=== PATIENT | female | born 1960 | race Caucasian/White ===

== ENCOUNTER 2017-01-31 17:09 | Emergency (ER) | payer MEDICAID ==
[2017-01-31] MEDS ORDERED: Lidocaine 2% 10 ML Amp INJECT ONE (18:06)
[2017-01-31 19:17] VITALS: BP 136/71
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
--- NOTE | 2017-02-04 14:29 | CR ---
INDICATION: Trauma. RIGHT FOREARM, 2 VIEWS: FINDINGS: This exam is given to me on 02/04/2017 to interpret. There is an earlier x-ray that is from 09/01/2010. Since the study from 2010, the patient underwent internal fixation of a comminuted fracture related to the distal radius. That fracture is healed. There is a non-united fracture fragment of the base of the styloid process of the ulna. There is some lucency that is identified within the radial head with some deformity in the radial head. There is an associated joint effusion. I do think that the patient probably does have an acute fracture associated with the radial head and radial neck. I otherwise do not see any additional fractures. IMPRESSION: 1. Acutely, there is a fracture associated with the radial head and neck of the radius. There is an associated joint effusion at the elbow. 2. Old, previously internally fixed fracture of the distal radius. [facility]
--- NOTE | 2017-02-04 14:33 | CR ---
INDICATION: Trauma. Navicular tenderness. RIGHT WRIST, 3 VIEWS: FINDINGS: There are three views of the right wrist that are obtained. In addition, there is an additional navicular view that was obtained. The patient had a previous comminuted fracture related to the distal radius, which has been previously internally fixed. There is an old non-united fracture associated with styloid process of the ulna. As visualized, I do not see an acute fracture related to the navicular bone or related to the remainder of the right wrist. If the patient should continue to have symptoms related to the right wrist or navicular region, I recommend either follow-up radiographs or if necessary, an MRI scan for further evaluation. RAY
== END 2017-01-31 19:15 | disposition home or self-care (01) ==
LOC: FB.ED 17:09
DX: S06.0X0A Concussion without loss of consciousness, initial encounter (principal); S52.124A Nondisplaced fracture of head of right radius, initial encounter for closed fracture; Z88.1 Allergy status to other antibiotic agents; Z88.5 Allergy status to narcotic agent; W22.8XXA Striking against or struck by other objects, initial encounter
CPT/HCPCS: 29125; 70450; 70486; 73090-RT; 73110-RT; 99283

== ENCOUNTER 2019-06-05 14:02 | Emergency (ER) | payer MEDICAID ==
--- NOTE | 2019-06-05 14:28 | EDM.PDOC ---
ED HPI GENERAL MEDICAL PROBLEM - General Chief Complaint: ENT Problem Stated Complaint: SOMETHING IN LEFT EYE Time Seen by Provider: 06/05/19 14:27 Source of Information: Reports: Patient History Limitations: Reports: No Limitations - History of Present Illness INITIAL COMMENTS - FREE TEXT/NARRATIVE: 58-year-old female who reports she woke at 7:45 AM with a feeling of irritation and discomfort in her left eye. He also had increased tearing in her left eye. She attempted to flush the eye and there was no relief of her symptoms. She does have the feeling of a foreign body in her left eye and seems to be moving around but seems to be under her upper lid. No nausea or vomiting. No nasal congestion or sore throat. No cough or difficulty breathing. She rates the discomfort as an 8/10. It isn't irritating type of pain. No known injury. No known exposure. She reports she was completely normal when she went to bed last night with no symptoms. There are no other associated signs or symptoms. There are no other modifying factors. Onset: Today (7:45 AM) Duration: Constant Location: Reports: Other (Left eye) Quality: Reports: Other (Irritating) Severity: Moderate Improves with: Reports: None Worsens with: Reports: Other (Blinking. Light.) Context: Reports: Other (As above) Associated Symptoms: Reports: No Other Symptoms Treatments G[employer] ATTENDANT: Reports: Other (see below) Left Eye Pain Score (Numeric/FACES): 4 - Related Data Allergies Allergy/AdvReac Type Severity Reaction Status Date / Time codeine Allergy Nausea Verified 06/05/19 14:11 Penicillins Allergy Respiratory Verified 06/05/19 14:11 Distress Home Meds: Home Meds Erythromycin Base [Erythromycin 0.5% Ophth Oint] 1 applic EYELF QID 5 Days #1 tube 06/05/19 [Rx] Mirtazapine 7.5 mg PO BEDTIME PRN 06/05/19 [History] Sertraline [Zoloft] 50 mg PO DAILY 06/05/19 [History] Past Medical History HEENT History: Reports: Impaired Vision Other HEENT History: wears glasses Cardiovascular History: Reports: Hypertension Respiratory History: Reports: Asthma Musculoskeletal History: Reports: Fracture Other Musculoskeletal History: fx L wrist Psychiatric History: Reports: Anxiety, Depression Endocrine/Metabolic History: Reports: Obesity/BMI 30+ Oncologic (Cancer) History: Reports: Breast - Infectious Disease History Infectious Disease History: Reports: Chicken Pox - Past Surgical History HEENT Surgical History: Reports: Tonsillectomy GI Surgical History: Reports: Appendectomy, Cholecystectomy Female Surgical History: Reports: Hysterectomy Musculoskeletal Surgical History: Reports: ORIF (Of left arm 2) Other Musculoskeletal Surgeries/Procedures:: L wrist Oncologic Surgical History: Reports: Lumpectomy Social & Family History - Tobacco Use Smoking Status *Q: Never Smoker - Caffeine Use Caffeine Use: Reports: Coffee - Alcohol Use Alcohol Use History: No - Living Situation & Occupation Occupation: Disabled ED ROS ENT - Review of Systems Review Of Systems: See Below Constitutional: Reports: No Symptoms HEENT: Reports: Eye Pain, Other (Increased tearing in left eye) Respiratory: Reports: No Symptoms Cardiovascular: Reports: No Symptoms GI/Abdominal: Reports: No Symptoms : Reports: No Symptoms Musculoskeletal: Reports: No Symptoms Skin: Reports: No Symptoms Neurological: Reports: No Symptoms Hematologic/Lymphatic: Reports: No Symptoms Immunologic: Reports: Other (Greater than 5 years since her last tetanus immunization) ED EXAM, ENT - Physical Exam Exam: See Below Text/Narrative:: Visual acuity is 20/50. Exam Limited By: No Limitations General Appearance: Alert, WD/WN, Moderate Distress Eye Exam: Left Eye: Corneal Abrasion (fluroscein uptake in left eye and diffuse pattern. No foreign body found. Upper lid everted), Bilateral Eye: EOMI, PERRL Ears: Normal External Exam, Hearing Grossly Normal Nose: Normal Inspection, Normal Mucousa, No Blood Mouth/Throat: Normal Inspection, Normal Lips, Normal Oropharynx Head: Atraumatic, Normocephalic Neck: Normal Inspection, Supple, Non-Tender, Full Range of Motion Respiratory/Chest: No Respiratory Distress, Lungs Clear, Normal Breath Sounds, No Accessory Muscle Use Cardiovascular: Normal Peripheral Pulses, Regular Rate, Rhythm, No JVD GI/Abdominal: Normal Bowel Sounds, Soft, Non-Tender, No Mass Back: Normal Inspection, Full Range of Motion Extremities: Normal Inspection, Normal Range of Motion, Non-Tender, No Pedal Edema, Normal Capillary Refill Neurological: Alert, Oriented, CN II-XII Intact, Normal Cognition, No Motor/ Sensory Deficits Psychiatric: Anxious Skin: Warm, Dry, Intact, Normal Color, No Rash ED ENT PROCEDURES - Additional/Other Procedure(s) Other (Free Text) Procedure(s): Tetracaine eyedrops were applied to the left eye exam of the left eye showed no evidence of foreign body. The upper lid was everted and there were no foreign bodies under the upper eyelid. Fluorescein staining did show evidence of a abrasion that was mild. The eye was copiously irrigated with eyewash solution by the nursing staff. She tolerated this well and there were no apparent complications. Course - Vital Signs Last Recorded V/S: Last Vital Signs Temp 36.6 C 06/05/19 14:02 Pulse 91 06/05/19 14:02 Resp 18 06/05/19 14:02 BP 156/83 H 06/05/19 14:02 Pulse Ox 99 06/05/19 14:02 - Orders/Labs/Meds Orders: Active Orders 24 hr Category Date Time Status Vaccines to be Administered [RC] PER UNIT ROUTINE Care 06/05/19 14:52 Ordered Diphth,Pertuss(Acell),Tet Vac [Adacel] Med 06/05/19 14:52 Once 0.5 ml IM .ONCE ONE Tetracaine HCl/PF [Tetracaine 0.5% Steri-Unit Claudia] Med 06/05/19 14:52 Once 1 ml EYELF ASDIRECTED ONE Water, Distilled [Eye Wash Irrigation Soln] Med 06/05/19 14:52 Once 1 ml EYELF ONETIME ONE - Re-Assessments/Exams Free Text/Narrative Re-Assessment/Exam: 06/05/19 14:56: Patient with no foreign body on exam. She does have a corneal abrasion in the left eye. The left eye was irrigated by the nursing staff and I will place the patient on E-Mycin I will ointment to the left eye. The patient may also place artificial tears in her left eye. She may also take Tylenol and ibuprofen for pain as needed. I have advised her to follow-up with an headmaster/mistress tomorrow if she continues to have symptoms. Departure - Departure Time of Disposition: 15:00 Disposition: Home, Self-Care 01 Condition: Good (Stable) Clinical Impression: Corneal abrasion Qualifiers: Encounter type: initial encounter Laterality: left Qualified Code(s): S05.02XA - Injury of conjunctiva and corneal abrasion without foreign body, left eye, initial encounter - Discharge Information Prescriptions: Erythromycin Base [Erythromycin 0.5% Ophth Oint] 1 applic EYELF QID 5 Days #1 tube Instructions: Corneal Abrasion, [id number] Referrals: Sierra Johnson CHIEF CRNA [Primary Care Provider] - Forms: ED Department Discharge Additional Instructions: I did not find any foreign body in your left eye. You do appear to have a scrape or an abrasion to the cornea of your left eye. You should apply artificial tears to your left eye during the day as needed. You may also take Tylenol and ibuprofen as needed for pain. Medication as prescribed ( erythromycin eye ointment). You were given a Tdap immunization today to bring your tetanus immunization status up-to-date. If you are having persisting symptoms with your left eye tomorrow, you should follow-up with an headmaster/mistress or eye doctor. Back to the emergency department for unrelenting vomiting, trouble breathing or any other concerning sign or symptom. - My Orders Last 24 Hours: My Active Orders 06/05/19 14:52 Vaccines to be Administered [RC] PER UNIT ROUTINE Diphth,Pertuss(Acell),Tet Vac [Adacel] 0.5 ml IM .ONCE ONE Tetracaine HCl/PF [Tetracaine 0.5% Steri-Unit Claudia] 1 ml EYELF ASDIRECTED ONE Water, Distilled [Eye Wash Irrigation Soln] 1 ml EYELF ONETIME ONE - Assessment/Plan Last 24 Hours: My Active Orders 06/05/19 14:52 Vaccines to be Administered [RC] PER UNIT ROUTINE Diphth,Pertuss(Acell),Tet Vac [Adacel] 0.5 ml IM .ONCE ONE Tetracaine HCl/PF [Tetracaine 0.5% Steri-Unit Claudia] 1 ml EYELF ASDIRECTED ONE Water, Distilled [Eye Wash Irrigation Soln] 1 ml EYELF ONETIME ONE
[2019-06-05 14:34] VITALS: BP 156/83; PULSE 91
[2019-06-05] MEDS ORDERED: Distilled Water Ophth Irrig Soln 120 ML Bottle EYELF ONE (14:52)
[2019-06-05] MEDS ORDERED: Diphtheria,Pertussis(Acell),Tetanus Vaccine 0.5 ML SDV IM ONE (14:52)
[2019-06-05] MEDS ORDERED: Tetracaine HCl/PF 0.5% 4 ML Bottle EYELF ONE (14:52)
== END 2019-06-05 15:17 | disposition home or self-care (01) ==
LOC: FB.ED 14:02
DX: S05.02XA Injury of conjunctiva and corneal abrasion without foreign body, left eye, initial encounter (principal); I10 Essential (primary) hypertension; J45.909 Unspecified asthma, uncomplicated; E66.9 Obesity, unspecified; F41.9 Anxiety disorder, unspecified; F32.9 Major depressive disorder, single episode, unspecified; Z68.30 Body mass index [BMI] 30.0-30.9, adult; Z88.5 Allergy status to narcotic agent; Z88.0 Allergy status to penicillin; Z23 Encounter for immunization; X58.XXXA Exposure to other specified factors, initial encounter
CPT/HCPCS: 90471; 90715; 99283

== ENCOUNTER 2025-07-24 08:42 | Emergency (ER) | payer MEDICARE, MEDICAID ==
[2025-07-24] MEDS ORDERED: Sodium Chloride 0.9% 10 ML Syringe FLUSH PRN (09:04)
[2025-07-24 09:15] LABS: BASOPHILS ABSOLUTE AUTO 0.1 x10-3/uL (0.0-0.1); BASOPHILS PERCENT AUTO 0.6 % (0.2-1.5); EOSINOPHILS ABSOLUTE AUTO 0.0 x10-3/uL (0.0-0.8); EOSINOPHILS PERCENT AUTO 0.3 % (0.6-8.1); LYMPHOCYTES ABSOLUTE AUTO 0.7 x10-3/uL (1.0-4.4); LYMPHOCYTES PERCENT AUTO 7.4 % (18.4-52.1); MEAN PLATELET VOLUME 8.2 fL (7.1-12.4); MONOCYTES ABSOLUTE AUTO 0.9 x10-3/uL (0.3-1.0); MONOCYTES PERCENT AUTO 9.5 % (4.4-15.7); NEUTROPHILS ABSOLUTE AUTO 7.8 x10-3/uL (1.5-6.3); NEUTROPHILS PERCENT AUTO 82.2 % (30.8-76.2); PLATELET COUNT,PLT 273 x10(3)uL (151-488); RED BLOOD CELL COUNT 4.82 x10(6)uL (3.60-5.20); RED CELL DISTRIBUTION WIDTH 13.7 % (12.3-16.5); WHITE BLOOD CELL COUNT,WBC 9.5 x10-3/uL (3.0-10.3)
[2025-07-24 09:20] LABS: BLOOD UREA NITROGEN,BUN 14 mg/dL (7-18); CARBON DIOXIDE,CO2 28 mmol/L (21-32); CHLORIDE,CL 99 mmol/L (100-110); CREATININE 0.9 mg/dL (0.55-1.02); EST CRCL DRUG DOSING (CG) 48.63 mL/min; ESTIMATED GFR 71 mL/min (>60); GLUCOSE RANDOM 146 mg/dL (80-116); POTASSIUM,K 3.7 mmol/L (3.5-5.3); SODIUM,NA 137 mmol/L (135-145)
[2025-07-24] MEDS: Ondansetron 4 MG/2 ML SDV IVPUSH ONE (09:24)
[2025-07-24 09:25] LABS: A/G RATIO 1.1; ALANINE AMINOTRANSFERASE,ALT 22 U/L (12-36); ASPARTATE AMNIOTRANSFERASE,AST 13 IU/L (5-25); BILIRUBIN TOTAL 0.7 mg/dL (0.1-1.3); PROTEIN TOTAL,TP 7.9 g/dL (6.0-8.0)
[2025-07-24] MEDS: Ketorolac 30 MG/ML SDV IVPUSH ONE (10:08)
[2025-07-24 12:22] VITALS: BP 151/67; PULSE 94
== END 2025-07-24 12:20 | disposition home or self-care (01) ==
LOC: FB.ED 08:42
DX: J10.1 Influenza due to other identified influenza virus with other respiratory manifestations (principal); J45.41 Moderate persistent asthma with (acute) exacerbation; E86.0 Dehydration; I10 Essential (primary) hypertension; E11.9 Type 2 diabetes mellitus without complications; E66.9 Obesity, unspecified; Z90.49 Acquired absence of other specified parts of digestive tract; Z90.710 Acquired absence of both cervix and uterus; Z88.0 Allergy status to penicillin; Z88.5 Allergy status to narcotic agent; Z79.84 Long term (current) use of oral hypoglycemic drugs; Z79.899 Other long term (current) drug therapy; Z68.32 Body mass index [BMI] 32.0-32.9, adult
CPT/HCPCS: 36415; 71046; 80053; 83605; 83735; 84484; 85025; 86140; 87428; 93005; 94640; 96361; 96374; 96375; 99285; A9270; J2405; J2765; J7030; 93010; 99284; J1885